=== PATIENT | female | born 1990 | race American Indian/Alaskan Native ===

== ENCOUNTER 2021-08-09 21:23 | Emergency (ER) | payer SELFPAY ==
--- NOTE | 2021-08-09 21:51 | Emergency Department Report ---
ED HPI - General Chief complaint: Vaginal Bleeding Stated complaint: VAGINAL BLEEDING, 8 WKS Source: EMS Mode of arrival: Stretcher Limitations: No Limitations - History of Present Illness Initial comments: Patient is a 31-year-old female with no significant past medical history who is a , LMP June 15 who presents to the emergency department with complaint of vaginal bleeding, cramping. Patient reports that she was seen today at [facility] she was told she is approximately 8 weeks . Her first she lost that 6 weeks. She had bleeding started at 5AM at that time when she was seen at [facility] she had ultrasound completed that noted positive heart tones. Patient went home however has had worsening heavier bleeding, is passing large clots and possible tissue. She denies any urinary symptoms, back pain, fevers chills. - Related Data Allergies Allergy/AdvReac Type Severity Reaction Status Date / Time No Known Allergies Allergy Verified 08/09/21 22:34 ED Review of Systems ROS: Stated complaint: VAGINAL BLEEDING, 8 WKS Other details as noted in HPI Constitutional: denies: chills, fever Eyes: denies: eye pain ENT: denies: throat pain Respiratory: denies: orthopnea Cardiovascular: denies: orthopnea Endocrine: no symptoms reported Gastrointestinal: abdominal pain, nausea. denies: vomiting Genitourinary: as per HPI Musculoskeletal: denies: back pain Skin: denies: rash Neurological: denies: headache, weakness Psychiatric: denies: anxiety, depression Hematological/Lymphatic: denies: easy bleeding ED Past Medical Hx - Past Medical History Previous Medical History?: Yes - Surgical History Past Surgical History?: No - Social History Smoking Status: Never Smoker Substance Use Type: None ED Physical Exam - General Limitations: No Limitations General appearance: alert, in distress (mild, secondary to pain) - Head Head exam: Present: atraumatic, normocephalic - Eye Eye exam: Present: normal appearance - ENT ENT exam: Present: mucous membranes moist - Neck Neck exam: Present: normal inspection - Respiratory Respiratory exam: Present: normal lung sounds bilaterally. Absent: respiratory distress - Cardiovascular Cardiovascular Exam: Present: regular rate, normal rhythm. Absent: systolic murmur, diastolic murmur, rubs, gallop - GI/Abdominal GI/Abdominal exam: Present: soft. Absent: distended, tenderness - Rectal Rectal exam: Present: deferred - External exam: Present: bleeding, other (Large clots in the vaginal vault were evacuated and patient cervix was noted to be open.) - Expanded Exam Expanded Speculum exam: Present: cervical OS open - Extremities Exam Extremities exam: Present: normal inspection, full ROM. Absent: tenderness - Back Exam Back exam: Present: normal inspection - Neurological Exam Neurological exam: Present: alert, oriented X3 - Psychiatric Psychiatric exam: Present: normal affect, normal mood - Skin Skin exam: Present: warm, dry, intact ED Course Vital Signs 08/09/21 08/09/21 08/10/21 22:37 23:30 00:00 Temperature 98.5 F Pulse Rate 65 88 61 Respiratory 25 H 22 20 Rate Blood Pressure 142/85 134/81 Blood Pressure 137/88 [Left] O2 Sat by Pulse 100 100 100 Oximetry - Reevaluation(s) Reevaluation #1: 08/10/21 00:31 Patient passing significant clots on speculum exam. Her os is noted to be open. An ultrasound is ordered to evaluate what remains in her uterus. Reevaluation #2: 08/10/21 02:20 I have reviewed patient's ultrasound report and reviewed her images. Given that patient had positive heart tones earlier in today and currently her uterus is empty it is likely that patient had a spontaneous or miscarriage. I plan to inform patient of results, we will also attempt to keep tissue for pathology given this is patient's second miscarriage. Patient will need close follow-up with OB. ED Medical Decision Making - Lab Data Result diagrams: 08/09/21 22:28 08/09/21 22:28 - Medical Decision Making Patient is a 31-year-old female presents emergency department with likely spontaneous . Patient is passing large amounts of clot and possibly tissue. Will give patient pain control, fluids, Zofran. We will then attempt a pelvic exam and patient likely will need repeat ultrasound to evaluate. Critical care attestation.: If time is entered above; I have spent that time in minutes in the direct care of this critically ill patient, excluding procedure time. ED Disposition Clinical Impression: Complete miscarriage Disposition: 01 HOME / SELF CARE / HOMELESS Is pt being admited?: No Does the pt Need Aspirin: No Condition: Stable Instructions: Miscarriage, [id number] Additional Instructions: Continue taking your vitamins. You should see your OB or the OB p dejon on her paperwork. You should have repeat blood hormone testing until your numbers are down to 0. Referrals: PRIMARY CARE, [Primary Care Provider] - 3-5 Days CHRISTY CARDONA MD [Staff Physician] - 3-5 Days Forms: Work/School Release Form(ED) Time of Disposition: 02:23
[2021-08-09] MEDS ORDERED: SODIUM CHLORIDE 0.9% 1000 ML 1,000 ML IV ONE (22:14)
[2021-08-09] MEDS ORDERED: ONDANSETRON 4 MG ODT TAB PO ONE (22:14)
[2021-08-09] MEDS ORDERED: HYDROcodone/ACETAMINOPHEN 10-325MG TAB PO ONE (22:14)
[2021-08-09 22:54] LABS: Basophils # (Auto) 0.2 K/mm3 (0.0-0.1); Basophils % (Auto) 1.1 % (0.0-1.8); Eosinophils # (Auto) 0.2 K/mm3 (0.0-0.4); Eosinophils % (Auto) 1.4 % (0.0-4.3); Hematocrit 33.5 % (30.3-42.9); Hemoglobin 10.9 gm/dl (10.1-14.3); Lymphocytes # (Auto) 2.1 K/mm3 (1.2-5.4); Lymphocytes % (Auto) 15.7 % (13.4-35.0); Mean Corpuscular HGB Conc 32 % (30-34); Mean Corpuscular Volume 79 fl (79-97); Monocytes # (Auto) 0.8 K/mm3 (0.0-0.8); Monocytes % (Auto) 6.1 % (0.0-7.3); Platelet Count 351 K/mm3 (140-440); Red Blood Count 4.25 M/mm3 (3.65-5.03)
[2021-08-09 23:00] LABS: Blood Urea Nitrogen 7 mg/dL (7-17); Calcium 9.3 mg/dL (8.4-10.2); Hemolysis Index 0
[2021-08-09 23:13] LABS: BUN/Creatinine Ratio 12
--- NOTE | 2021-08-10 02:15 | Ultrasound Report ---
ULTRASOUND OBSTETRIC REASON FOR EXAM: vaginal bleeding;passing large clots/tissue 8 week TECHNIQUE: Transabdominal and transvaginal ultrasound was performed to evaluate a first trimester pre gnancy. COMPARISON: None available. FINDINGS: Uterus measures 9 cm. Endometrial stripe measures 2.1 cm. No IUP is identified. There is no significa nt endometrial fluid. Bilateral adnexa are unremarkable. No significant cystic or solid mass. No significant free fluid. IMPRESSION: No IUP identified. of unknown location. Findings may reflect spontaneous . Normal i ntrauterine or occult ectopic cannot exclude. Recommend continued follow-up with beta hCG and sonography, as clinically indicated. Signer Name: Sarkis Richard MD Signed: 08/10/2021 2:10 AM Workstation Name: [id number]
[2021-08-10 02:26] VITALS: BP 117/58
== END 2021-08-10 03:55 | disposition home or self-care (01) ==
LOC: EDBD → ED 21:23
DX: O03.9 Complete or unspecified spontaneous abortion without complication (principal)
CPT/HCPCS: 36415; 76801; 80048; 84702; 85025; 86900; 86901; 96360; 96361; 99284; J7030; J3490; Q0162

== ENCOUNTER 2021-08-12 08:17 | Emergency (ER) | payer SELFPAY ==
--- NOTE | 2021-08-12 09:34 | Emergency Department Report ---
HPI - General Chief Complaint: Abdominal Pain Time Seen by Provider: 08/12/21 08:57 - HPI HPI: 31-year-old -[place] female presents to the emergency department with complaint of lower abdominal and pelvic pain that is been going on for the past 24 hours. The patient was seen here a few days ago on 08/09. At that time the patient was believed to be at about 7 weeks gestation and was G2, P0. She had labs that showed a beta-hCG of about 23,000, but then had an ultrasound that did not show any evidence of IUP. There was concern for a spontaneous miscarriage. Throughout all of yesterday the patient had this lower abdominal and pelvic pain. She says that it sometimes feels like she has to have a bowel movement and even if she does not, but attempts to, she has increased pain that will radiate towards the back. She denies any dysuria, vaginal discharge. She still has some vaginal bleeding but it is mild compared to previous. The patient says that she took a entire small bottle of Tylenol PM over the past 24 hours in attempt to treat her discomfort and get some rest. She did not attempt an intentional overdose and denies any suicidal ideations. ED Past Medical Hx - Social History Smoking Status: Never Smoker Substance Use Type: None - Medications Home Medications: Home Medications Medication Instructions Recorded Confirmed Last Taken Type Sulfamethoxazole/Trimethoprim 1 each PO BID #14 tablet 08/12/21 Unknown Rx [Bactrim DS TAB] ED Review of Systems ROS: Stated complaint: abdominal pain Other details as noted in HPI Comment: All other systems reviewed and negative Constitutional: denies: chills, fever Eyes: denies: eye pain, vision change ENT: denies: ear pain, throat pain Respiratory: denies: cough, shortness of breath Cardiovascular: denies: chest pain, palpitations Gastrointestinal: abdominal pain. denies: vomiting Genitourinary: other (pelvic pain, mild vaginal bleeding). denies: dysuria, discharge Musculoskeletal: denies: joint swelling, arthralgia Skin: denies: rash, lesions Neurological: denies: headache, weakness Physical Exam - Physical Exam Physical Exam: GENERAL: The patient is well-developed well-nourished. HENT: Normocephalic. Atraumatic. Patient has moist mucous membranes. EYES: Extraocular motions are intact. NECK: Supple. Trachea is midline. CHEST/LUNGS: Clear to auscultation. There is no respiratory distress noted. HEART/CARDIOVASCULAR: Regular. There is no tachycardia. There is no murmur. ABDOMEN: Abdomen is soft. Lower abdominal tenderness to palpation. No guarding. Patient has normal bowel sounds. There is no abdominal distention. SKIN: Skin is warm and dry. NEURO: The patient is awake, alert, and oriented. The patient is cooperative. The patient has no focal neurologic deficits. Normal speech. MUSCULOSKELETAL: There is no tenderness or deformity. There is no limitation range of motion. ED Medical Decision Making - Lab Data Result diagrams: 08/12/21 09:32 08/12/21 09:32 Labs 08/12/21 08/12/21 08/12/21 09:32 09:32 09:32 WBC 10.2 RBC 3.82 Hgb 9.4 L Hct 30.2 L MCV 79 MCH 25 L MCHC 31 RDW 15.9 H Plt Count 332 Lymph % (Auto) 9.2 L [place] % (Auto) 8.0 H Eos % (Auto) 1.2 Baso % (Auto) 0.4 Lymph # (Auto) 0.9 L [place] # (Auto) 0.8 Eos # (Auto) 0.1 Baso # (Auto) 0.0 Seg Neutrophils % 81.2 H Seg Neutrophils # 8.3 H Sodium 139 Potassium 3.7 Chloride 104.0 Carbon Dioxide 21 L Anion Gap 18 BUN 9 Creatinine 0.6 Estimated GFR > 60 BUN/Creatinine Ratio 15 Glucose 99 Calcium 8.7 Total Bilirubin 0.30 AST 9 ALT 8 Alkaline Phosphatase 70 Total Protein 7.2 Albumin 3.7 L Albumin/Globulin Ratio 1.1 HCG, Quant 1875 H Urine Color Urine Turbidity Urine pH Ur Specific [place] Urine Protein Urine Glucose (UA) Urine Ketones Urine Blood Urine Nitrite Urine Bilirubin Urine Urobilinogen Ur Leukocyte Esterase Urine WBC (Auto) Urine RBC (Auto) U Epithel Cells (Auto) Urine Mucus Acetaminophen Blood Type Ord Rhogam Gestat Weeks 08/12/21 08/12/21 08/12/21 09:32 10:17 11:01 WBC RBC Hgb Hct MCV MCH MCHC RDW Plt Count Lymph % (Auto) [place] % (Auto) Eos % (Auto) Baso % (Auto) Lymph # (Auto) [place] # (Auto) Eos # (Auto) Baso # (Auto) Seg Neutrophils % Seg Neutrophils # Sodium Potassium Chloride Carbon Dioxide Anion Gap BUN Creatinine Estimated GFR BUN/Creatinine Ratio Glucose Calcium Total Bilirubin AST ALT Alkaline Phosphatase Total Protein Albumin Albumin/Globulin Ratio HCG, Quant Urine Color Yellow Urine Turbidity Slightly-cloudy Urine pH 5.0 Ur Specific [place] 1.033 H Urine Protein 100 mg/dl Urine Glucose (UA) Neg Urine Ketones Tr Urine Blood Lg Urine Nitrite Neg Urine Bilirubin Neg Urine Urobilinogen < 2.0 Ur Leukocyte Esterase Lg Urine WBC (Auto) 169.0 H Urine RBC (Auto) > 182.0 U Epithel Cells (Auto) 9.0 Urine Mucus 3+ Acetaminophen 8.4 L Blood Type O POSITIVE Ord Rhogam Gestat Weeks Rh pos - Radiology Data Radiology results: report reviewed CT ABDOMEN AND PELVIS WITHOUT CONTRAST INDICATION / CLINICAL INFORMATION: lower abd pain and pelvic pain, recent miscarriage. TECHNIQUE: Axial CT images were obtained through the abdomen and pelvis without IV contrast. All CT scans at this location are performed using CT dose reduction for ALARA by means of automated exposure control. COMPARISON: None available. FINDINGS: LOWER CHEST: 2 mm nodule, left lower lobe. LIVER: No significant abnormality. GALLBLADDER: No significant abnormality. BILE DUCTS: No significant abnormality. PANCREAS: No significant abnormality. SPLEEN: No significant abnormality. ADRENALS: No significant abnormality. RIGHT KIDNEY and URETER: No significant abnormality. LEFT KIDNEY and URETER: No significant abnormality. STOMACH and SMALL BOWEL: No significant abnormality. COLON: No significant abnormality. APPENDIX: No significant abnormality. PERITONEUM: No free fluid. No free air. No fluid collection. LYMPH NODES: No significant adenopathy. AORTA and ARTERIES: No significant abnormality. IVC and VEINS: No significant abnormality. URINARY BLADDER: No significant abnormality. REPRODUCTIVE ORGANS: No significant abnormality. ADDITIONAL FINDINGS: None. SKELETAL SYSTEM: No significant abnormality. IMPRESSION: No acute findings identified within the limits of the noncontrast technique. - Medical Decision Making This patient presents to the emergency department with lower abdominal and pelvic pain. She still has some vaginal bleeding but it is greatly improved since her previous visit. Vital signs reassuring throughout her ED course i ncluding being afebrile. On examination there is some reproducible lower abdominal tenderness to palpation. However, the abdomen is soft, nondistended and nontoxic in appearance. Labs show some anemia with a hemoglobin of about 9.5 but this is not a level that requires a blood transfusion. Beta-hCG has dropped from about 24,000 to about 1800. Urinalysis shows a significant urinary tract infection. And despite allegedly consuming an entire small bottle of Tylenol PM over about 24 hours, the acetaminophen level is not at a toxic level. CT scan of the abdomen and pelvis without contrast does not show any acute process or any etiology of her discomfort. Patient will be discharged home with antibiotics for urinary tract infection and she has been instructed to follow-up with primary care and [facility]. She will return to the ER with any worsening of her symptoms or with any acute distress. Critical Care Time: No Critical care attestation.: If time is entered above; I have spent that time in minutes in the direct care of this critically ill patient, excluding procedure time. ED Disposition Clinical Impression: Miscarriage UTI (urinary tract infection) Qualifiers: Urinary tract infection type: acute cystitis Hematuria presence: with hematuria Qualified Code(s): N30.01 - Acute cystitis with hematuria Anemia Qualifiers: Anemia type: unspecified type Qualified Code(s): D64.9 - Anemia, unspecified Abdominal pain Qualifiers: Abdominal location: unspecified location Qualified Code(s): R10.9 - Unspecified abdominal pain Disposition: 01 HOME / SELF CARE / HOMELESS Is pt being admited?: No Condition: Stable Instructions: Abdominal Pain, Adult, Urinary Tract Infection, Adult, Miscarriage, Managing Loss, Abdominal Pain (ED) Additional Instructions: Please follow-up with a primary care physician in the next few days. Please follow-up with an [facility] group regarding your miscarriage. Take all medications as prescribed. Return to the emergency department with any worsening of your symptoms, new or concerning symptoms not addressed during this current emergency department visit, or with any acute distress. Prescriptions: Sulfamethoxazole/Trimethoprim [Bactrim DS TAB] 1 each PO BID #14 tablet Referrals: PRIMARY CARE [Primary Care Provider] - 3-5 Days [facility] [Provider Group] - 3-5 Days [facility] [Provider Group] - 3-5 Days Time of Disposition: 11:56
[2021-08-12 09:48] LABS: Basophils % (Auto) 0.4 % (0.0-1.8); Eosinophils # (Auto) 0.1 K/mm3 (0.0-0.4); Eosinophils % (Auto) 1.2 % (0.0-4.3); Hematocrit 30.2 % (30.3-42.9); Hemoglobin 9.4 gm/dl (10.1-14.3); Lymphocytes # (Auto) 0.9 K/mm3 (1.2-5.4); Lymphocytes % (Auto) 9.2 % (13.4-35.0); Mean Corpuscular HGB Conc 31 % (30-34); Mean Corpuscular Volume 79 fl (79-97); Monocytes # (Auto) 0.8 K/mm3 (0.0-0.8); Platelet Count 332 K/mm3 (140-440); Red Blood Count 3.82 M/mm3 (3.65-5.03); Red Cell Distribution Width 15.9 % (13.2-15.2)
[2021-08-12 10:14] LABS: Alanine Aminotransferase 8 units/L (7-56); Albumin 3.7 g/dL (3.9-5); Blood Urea Nitrogen 9 mg/dL (7-17); Calcium 8.7 mg/dL (8.4-10.2); Hemolysis Index 1
[2021-08-12 10:17] LABS: BUN/Creatinine Ratio 15
--- NOTE | 2021-08-12 11:32 | Cat Scan Report ---
CT ABDOMEN AND PELVIS WITHOUT CONTRAST INDICATION / CLINICAL INFORMATION: lower abd pain and pelvic pain, recent miscarriage. TECHNIQUE: Axial CT images were obtained through the abdomen and pelvis without IV contrast. All CT scans at [facility] location are performed using CT dose reduction for ALARA by means of automated exposure control. COMPARISON: None available. FINDINGS: LOWER CHEST: 2 mm nodule, left lower lobe. LIVER: No significant abnormality. GALLBLADDER: No significant abnormality. BILE DUCTS: No significant abnormality. PANCREAS: No significant abnormality. SPLEEN: No significant abnormality. ADRENALS: No significant abnormality. RIGHT KIDNEY and URETER: No significant abnormality. LEFT KIDNEY and URETER: No significant abnormality. STOMACH and SMALL BOWEL: No significant abnormality. COLON: No significant abnormality. APPENDIX: No significant abnormality. PERITONEUM: No free fluid. No free air. No fluid collection. LYMPH NODES: No significant adenopathy. AORTA and ARTERIES: No significant abnormality. IVC and VEINS: No significant abnormality. URINARY BLADDER: No significant abnormality. REPRODUCTIVE ORGANS: No significant abnormality. ADDITIONAL FINDINGS: None. SKELETAL SYSTEM: No significant abnormality. IMPRESSION: No acute findings identified within the limits of the noncontrast technique. Signer Name: Stevie Munoz MD Signed: 08/12/2021 11:27 AM Workstation Name: [id number]
[2021-08-12 11:41] LABS: Bilirubin,Urine NEG (Negative); Blood,Urine LG (Negative); Color,Urine Yellow (Yellow); Mucus,Urine 3+ /HPF; Urobilinogen,Urine < 2.0 mg/dL (<2.0)
[2021-08-12 11:43] LABS: RBC,Urine > 182.0 /HPF (0.0-6.0)
[2021-08-12 11:57] VITALS: BP 130/77
== END 2021-08-12 12:09 | disposition home or self-care (01) ==
LOC: EDBD → ED 08:17
DX: O03.9 Complete or unspecified spontaneous abortion without complication (principal); N39.0 Urinary tract infection, site not specified; D64.9 Anemia, unspecified; R10.9 Unspecified abdominal pain
CPT/HCPCS: 36415; 74176; 80053; 80320; 81001; 84702; 85025; 86900; 86901; 99284; G0480

== ENCOUNTER 2021-08-12 17:08 | Emergency (ER) | payer SELFPAY ==
[2021-08-12] MEDS ORDERED: KETOROLAC 60 MG/2 ML INJ IM ONE (18:37)
[2021-08-12] MEDS ORDERED: ONDANSETRON 4 MG ODT TAB PO ONE (18:40)
--- NOTE | 2021-08-12 18:40 | Emergency Department Report ---
ED Abdominal Pain HPI - General Chief Complaint: Abdominal Pain Stated Complaint: ABDOMINAL PAIN Time Seen by Provider: 08/12/21 18:25 Source: patient, old records reviewed Mode of arrival: Ambulatory Limitations: No Limitations - History of Present Illness Initial Comments: 31-year-old female diagnosed with miscarriage presents to the hospital complaint continued suprapubic abdominal pain. Patient has had intermittent pressure in her lower abdomen radiating to her rectal area. Pain is severe at times and worse with palpation. She was seen here on August 09 and had a ultrasound showing no IUP despite elevated quant level. She returned today and had a decrease in clot in the unremarkable CT scan abdomen and pelvis. She was diagnosed with UTI started on Bactrim. Patient denies dysuria or frequency but does have worsening pelvic pressure with urination radiating to the rectal area. She complains of dizziness when pain is severe but otherwise denies shortness of breath, dyspnea exertion, lightheadedness, or fatigue. Patient was taking a lot of Tylenol prior to her presentation today and was not prescribed any pain medication upon discharge this afternoon. She complains of some mild nausea which has since resolved. Patient is using 5-6 pads per day and recently started passing clots. patient has not established outpatient [facility] care Severity scale (0 -10): 10 - Related Data Previous Rx's Medication Instructions Recorded Last Taken Type HYDROcodone/APAP 5-325 [[place] 1 each PO Q6HR PRN #14 tablet 08/12/21 Unknown Rx 5/325] Ibuprofen [Motrin] 800 mg PO Q8HR PRN #20 tablet 08/12/21 Unknown Rx Sulfamethoxazole/Trimethoprim 1 each PO BID #14 tablet 08/12/21 08/12/21 13:50 Rx [Bactrim DS TAB] Allergies Allergy/AdvReac Type Severity Reaction Status Date / Time No Known Allergies Allergy Verified 08/12/21 17:20 ED Review of Systems ROS: Stated complaint: ABDOMINAL PAIN Other details as noted in HPI Comment: All other systems reviewed and negative ED Past Medical Hx - Social History Smoking Status: Never Smoker Substance Use Type: None - Medications Home Medications: Home Medications Medication Instructions Recorded Confirmed Last Taken Type HYDROcodone/APAP 5-325 [[place] 1 each PO Q6HR PRN #14 tablet 08/12/21 Unknown Rx 5/325] Ibuprofen [Motrin] 800 mg PO Q8HR PRN #20 tablet 08/12/21 Unknown Rx Sulfamethoxazole/Trimethoprim 1 each PO BID #14 tablet 08/12/21 08/12/21 13:50 Rx [Bactrim DS TAB] ED Physical Exam - General Limitations: No Limitations - Other Other exam information: General: No acute distress Head: Atraumatic Eyes: normal appearance ENT: Moist mucous membranes Neck: Normal appearance, no midline tenderness Chest: Clear to auscultation bilaterally CV: Regular rate and rhythm Abdomen: Soft, normal bowel sounds, suprapubic tender , nondistended, no rebound or guarding Back: Normal inspection Extremity: Normal inspection, full range of motion Neuro: Alert O x 3, no facial asymmetry, speech clear, no gross motor sensory deficit Psych: Appropriate behavior Skin: No rash ED Course Vital Signs 08/12/21 17:09 Temperature 98.8 F Pulse Rate 75 Respiratory 18 Rate Blood Pressure 140/68 [Right] O2 Sat by Pulse 100 Oximetry ED Medical Decision Making - Medical Decision Making 31-year-old female presents to the hospital complaining of abdominal pain secondary to miscarriage UTI. Vital signs normal. Patient had lab work earlier today. Patient received Toradol, Percocet, and Zofran in the ED with improvement in symptoms and will be discharged with pain medicines for home. Outpatient [facility] follow-up encouraged Critical Care Time: No Critical care attestation.: If time is entered above; I have spent that time in minutes in the direct care of this critically ill patient, excluding procedure time. ED Disposition Clinical Impression: Complete miscarriage, Abdominal pain Disposition: 01 HOME / SELF CARE / HOMELESS Is pt being admited?: No Does the pt Need Aspirin: No Condition: Stable Instructions: Abdominal Pain (ED), Miscarriage, [id number] Additional Instructions: Take the medication as prescribed. Follow-up with the [facility] OPERATOR not provided on her previous discharge instructions. Return if symptoms worsen as indicated by your discharge instructions. Prescriptions: Ibuprofen [Motrin] 800 mg PO Q8HR PRN #20 tablet PRN Reason: Pain , Severe (7-10) HYDROcodone/APAP 5-325 [[place] 5/325] 1 each PO Q6HR PRN #14 tablet PRN Reason: Pain Referrals: [facility] [Provider Group] - 3-5 Days Time of Disposition: 19:48
[2021-08-12] MEDS: oxyCODONE /ACETAMINOPHEN 5-325MG TAB PO ONE (18:50)
[2021-08-12 20:01] VITALS: BP 134/73
== END 2021-08-12 20:03 | disposition home or self-care (01) ==
LOC: EDBD → ED 17:08
DX: O03.9 Complete or unspecified spontaneous abortion without complication (principal); R10.9 Unspecified abdominal pain
CPT/HCPCS: 96372; 99282; J1885; J3490; Q0162